=== PATIENT | female | born 1965 ===

== ENCOUNTER 2021-05-22 10:04 | Day surgery (SDC) | payer OTHER ==
[~2021-05-22 10:04] MED LIST: FARXIGA10 MG PO; METFORMIN HCL1000 M2 PO; MULTIPLE VITAM1 EAC2 PO; OMEGA 3 1,0001 EACH PO; VITAMIN C100 MG PO
== END 2021-05-22 20:20 | disposition home or self-care (01) ==
LOC: CIR.AMB 10:04
PROVIDERS: ATTEND Specialist
DX: D06.7 Carcinoma in situ of other parts of cervix (principal); Z20.822 Contact with and (suspected) exposure to COVID-19

== ENCOUNTER 2022-08-12 10:07 | Outpatient (CLI) | payer OTHER | END 2022-08-12 10:21 | disposition home or self-care (01) | LOC: MAMO-SONO 10:07 → NUCLEAR 10:30 | PROVIDERS: ATTEND Specialist | DX: Z12.31 Encounter for screening mammogram for malignant neoplasm of breast (principal); N63.21 Unspecified lump in the left breast, upper outer quadrant; N63.11 Unspecified lump in the right breast, upper outer quadrant; R10.2 Pelvic and perineal pain ==

== ENCOUNTER 2022-08-12 10:18 | Outpatient (CLI) | payer OTHER | END 2022-08-12 10:22 | disposition home or self-care (01) | LOC: NUCLEAR 10:18 | PROVIDERS: ATTEND Specialist | DX: M81.0 Age-related osteoporosis without current pathological fracture (principal) ==